=== PATIENT | male | born 1945 | race Caucasian/White ===

== ENCOUNTER 2017-07-10 12:50 | Emergency (ER) | payer OTHER ==
[~2017-07-10] VITALS: Ht 185.4 cm; Wt 131.5 kg
--- NOTE | 2017-07-10 13:08 | NUR ---
PT IS IN ROOM #1B. DR MARTINO EVALUATED THE PT.
[2017-07-10] MEDS ORDERED: HYDR-4077 PO (13:39)
[2017-07-10] MEDS ORDERED: AMLO5TAB2 PO (13:39)
[2017-07-10] MEDS ORDERED: MULT1TAB73 PO (13:39)
[2017-07-10] MEDS ORDERED: BISA-79 PO (13:39)
[2017-07-10] MEDS ORDERED: SENN-167 PO (13:39)
[2017-07-10] MEDS ORDERED: EPOE1VIA12 IJ (13:39)
[2017-07-10] MEDS ORDERED: FOLI0.8T22 PO (13:39)
[2017-07-10] MEDS ORDERED: WARF2.5T47 PO (13:39)
[2017-07-10] MEDS ORDERED: OMEP20TA5 PO (13:39)
[2017-07-10] MEDS ORDERED: METO25TA6 PO (13:39)
[2017-07-10] MEDS ORDERED: GABA300C PO (13:39)
[2017-07-10] MEDS ORDERED: POLY17PO4 PO (13:39)
[2017-07-10] MEDS ORDERED: CHOL200074 PO (13:39)
[2017-07-10 13:40] LABS: BASOPHILS # (AUTO) 0.1 K/uL (0.0-8.0); BASOPHILS % (AUTO) 0.7 % (0.0-2.0); EOSINOPHILS # (AUTO) 0.6 K/uL (0.0-0.7); EOSINOPHILS % (AUTO) 5.4 % (0.0-7.0); HEMATOCRIT 31.3 % (36.7-47.1); HEMOGLOBIN 10.1 g/dL (12.5-16.3); LYMPHOCYTES # (AUTO) 0.6 K/uL (20.0-40.0); LYMPHOCYTES % (AUTO) 5.5 % (20.5-51.5); MEAN CORPUSCULAR HEMOGLOBIN 26.2 uug (23.8-33.4); MEAN CORPUSCULAR HGB CONC 32 g/dL (32.5-36.3); MEAN CORPUSCULAR VOLUME 81.4 fL (73.0-96.2); MONOCYTES # (AUTO) 1.1 K/uL (2.0-10.0); MONOCYTES % (AUTO) 9.4 % (0.0-11.0); NEUTROPHILS # (AUTO) 8.8 K/uL (1.8-8.9); PLATELET COUNT (AUTO) 201 K/uL (152-348); RED BLOOD CELL COUNT(AUTO) 3.84 MIL/uL (4.06-5.63); WHITE BLOOD COUNT (AUTO) 11.1 K/uL (3.6-10.2)
[2017-07-10] MEDS ORDERED: HUMALOG SQ (13:40)
[2017-07-10] MEDS ORDERED: NPH,100V2 SQ ×2 (13:40)
[2017-07-10] MEDS ORDERED: FURO80TA87 PO (13:40)
[2017-07-10 13:56] LABS: CARBON DIOXIDE 29 mmol/L (21-32); CHLORIDE 100 mmol/L (98-107); CREATININE 2.4 mg/dL (0.6-1.3); POTASSIUM 4.1 mmol/L (3.5-5.1); UREA NITROGEN, BLOOD 65 mg/dL (7-18)
[2017-07-10 13:58] LABS: GLUCOSE 380 mg/dL (74-106)
[2017-07-10 14:08] LABS: ALANINE AMINOTRANSFERASE 33 U/L (16-63); ALKALINE PHOSPHATASE 304 U/L (50-136); ASPARTATE AMINOTRANSFERASE 29 U/L (15-37); BILIRUBIN,TOTAL 0.6 mg/dL (0.2-1.0); CREATINE KINASE, TOTAL 91 U/L (39-308); TOTAL PROTEIN, SERUM 6.3 g/dL (6.4-8.2)
[2017-07-10 14:16] LABS: *BILIRUBIN,URIN NEGATIVE (NEGATIVE); *BLOOD, URINE NEGATIVE (NEGATIVE); *CLARITY,URINE CLEAR (CLEAR); *COLOR,URINE YELLOW (YELLOW); *KETONES,URINE NEGATIVE (NEGATIVE); *PROTEIN,URINE 2+ (NEGATIVE); *UROBILINOGEN,URINE 0.2 E.U./dl (NORMAL); LEUKOCYTE ESTERASE ,URINE NEGATIVE (NEGATIVE); NITRITE, URINE NEGATIVE (NEGATIVE)
[2017-07-10] MEDS: ALBUTEROL SULFATE 2.5 MG/ 0.5 ML NEBU NEB ONE (14:28)
[2017-07-10] MEDS: IPRATROPIUM BROMIDE 0.5 MG/2.5 ML NEBU NEB ONE (14:28)
[2017-07-10] MEDS ORDERED: methylPREDNISolone SOD SUCC 125 MG/2 ML VIAL ONE (14:29)
[2017-07-10 14:30] LABS: UGLUCOSE 1+ (NEGATIVE)
[2017-07-10] MEDS ORDERED: FUROSEMIDE 40 MG/4 ML VIAL ONE (14:30)
[2017-07-10] MEDS ORDERED: NITROGLYCERIN OINT 1 GM PACKET TP ONE (14:30)
[2017-07-10] MEDS: NITROGLYCERIN OINT 1 GM PACKET TP ONE (14:31)
[2017-07-10] MEDS: FUROSEMIDE 20 MG/2 ML VIAL IV ONE (14:31)
[2017-07-10] MEDS: methylPREDNISolone SOD SUCC 125 MG/2 ML VIAL IV ONE (14:32)
[2017-07-10] MEDS: CEFTRIAXONE 1 G in IV DEXTROSE 5% 50 ML IV ONE (14:32)
[2017-07-10 14:33] LABS: MUCUS,URINE FEW /LPF (0-FEW); SQUAMOUS EPITHELIAL CELL,UR FEW /HPF (NONE SEEN); WBC,URINE 0-3 /HPF (0-3)
[2017-07-10] MEDS: INSULIN REGULAR, HUMAN 1,000 UNITS/10 ML VIAL SUBCUT ONE (14:34)
[2017-07-10] MEDS ORDERED: IPRATROPIUM BROMIDE 0.5 MG/2.5 ML NEBU ONE (14:37)
[2017-07-10] MEDS ORDERED: ALBUTEROL SULFATE 2.5 MG/ 0.5 ML NEBU ONE (14:37)
[2017-07-10] MEDS ORDERED: CEFTRIAXONE 1 G VIAL ONE (14:52)
[2017-07-10] MEDS ORDERED: INSULIN REGULAR, HUMAN 300 UNIT/3 ML VIAL ONE (14:53)
[2017-07-10 15:56] LABS: ABG BASE EXCESS 1.4 mmol/L; ABG HCO3 25.3 mmol/L; ABG PCO2 37.3 mmHg (35.0-45.0); ABG PH 7.449 (7.350-7.450); ABG PO2 73.7 mmHg (75.0-100.0); ABG SITE RIGHT BRACHIAL; ABG TOTAL HEMOGLOBIN 11.3 G/dL (13.5-18.0); COHb 0.9 % (0.5-1.5); MetHb 0.2 % (0.0-1.5); O2Hb 94.1 % (94.0-97.0); VENT MODE Nasal Cannula
--- NOTE | 2017-07-10 16:20 | NUR ---
[facility] WAS CALLED. PT'S INFORMATION GIVEN. WAITING FOR [facility] YOU[facility] TO CALL BACK TO CONTACT TO DR MARTINO. PT IS RESTING IN BED COMFORTABLY. NO S/S OF ACUTE DISTRESS AT THIS TIME.
--- NOTE | 2017-07-10 16:28 | NUR ---
DR MARTINO DISCUSSED PT'S TRANSFER TO [facility] WITH DR YUAN. WAITING FOR CALL WITH TRANSFER INFORMATION.
[2017-07-10] MEDS ORDERED: hydrALAZINE HCL 25 MG TABLET ONE (16:33)
[2017-07-10 18:13] VITALS: BP 182/95
[2017-07-10] MEDS: hydrALAZINE HCL 25 MG TABLET PO ONE (18:13)
--- NOTE | 2017-07-10 18:14 | NUR ---
[facility] STRATEGIC [facility]NERSH[facility] SPECIALIST JEET CALLED WITH TRANSFER INFORMATION. PT IS GOING TO BE TRANSFERED TO [facility] VIA [facility]. ADMITTING MD IS DR GRAF. PT IS GOING TO ROOM #5097. PHONE NUMBER TO GIVE REPORT IS # [phone].
--- NOTE | 2017-07-10 18:20 | NUR ---
[facility] FOR [facility] TO PIC PT UP IS 1 HOUR 30 MINUTES.
--- NOTE | 2017-07-10 19:04 | NUR ---
REPORT GIVEN TO [employer] [employer]OD SELECTOR RN. PT IS RESTING IN BED COMFORTABLY. NO S/S OF ACUTE DISTRESS.
--- NOTE | 2017-07-10 19:20 | NUR ---
REPORT GIVEN TO [facility] DEBORAH CORDERO.
--- NOTE | 2017-07-10 19:51 | NUR ---
PATIENT IN BED, NO ACUTE DISTRESS NOTED. NO SOB NOTED AT THIS TIME. PATIENT AWAITING [facility].
--- NOTE | 2017-07-10 21:19 | NUR ---
Patient Tranfers to outside Facility Physician:Dr Ames Location:[facility] RN Sameer aware of patient , report given. Patient transported by [facility]. Report given to Bean Viner, Elsa Resendiz. All belongings taken with patient. Peripheral IV remains intact per accepting facility request. 2 RN skin check complete per protocol. VSS at time of transfer. No complaint of pain. Patients is aware of patient transfer.
== END 2017-07-10 21:22 | disposition short-term general hospital (02) ==
LOC: ER 12:54
DX: I11.0 Hypertensive heart disease with heart failure (principal); I50.9 Heart failure, unspecified; E11.621 Type 2 diabetes mellitus with foot ulcer; E11.65 Type 2 diabetes mellitus with hyperglycemia; I70.0 Atherosclerosis of aorta; L97.529 Non-pressure chronic ulcer of other part of left foot with unspecified severity; Z79.4 Long term (current) use of insulin; Z79.01 Long term (current) use of anticoagulants; Z88.0 Allergy status to penicillin
CPT/HCPCS: 36415; 36600; 51702; 71010; 80053; 81001; 82550; 82962 ×2; 83605; 83880; 84484; 85025; 85610; 93005; 94640; 96365; 96372; 96375; 99285; A4663; J0696; J1815; J1940; J2930; J3490; J3590; 70030-TC

== ENCOUNTER 2017-09-23 06:51 | Emergency (ER) | payer OTHER ==
[~2017-09-23] VITALS: Ht 182.9 cm; Wt 128.8 kg
[~2017-09-23 06:51] MED LIST: AMLO5TAB2 PO; BISA-79 PO; CHOL200074 PO; EPOE1VIA12 IJ; FOLI0.8T22 PO; FURO80TA87 PO; GABA300C PO; HUMALOG SQ; HYDR-4077 PO; METO25TA6 PO; MULT1TAB73 PO; NPH,100V2 SQ; OMEP20TA5 PO; POLY17PO4 PO; SENN-167 PO; WARF2.5T47 PO
[2017-09-23] MEDS: ALBUTEROL SULFATE 2.5 MG/3 ML NEBU NEB ONE (07:03)
[2017-09-23] MEDS: IPRATROPIUM BROMIDE 0.5 MG/2.5 ML NEBU NEB ONE (07:03)
--- NOTE | 2017-09-23 07:03 | NUR ---
Unable to reconcile pt's home medications at this time, pt is sob and unable to recall all of his meds.
[2017-09-23 07:15] LABS: BASOPHILS # (AUTO) 0.1 K/uL (0.0-8.0); BASOPHILS % (AUTO) 0.5 % (0.0-2.0); EOSINOPHILS # (AUTO) 0.3 K/uL (0.0-0.7); EOSINOPHILS % (AUTO) 2.1 % (0.0-7.0); HEMATOCRIT 36.2 % (36.7-47.1); HEMOGLOBIN 11.8 g/dL (12.5-16.3); LYMPHOCYTES # (AUTO) 0.6 K/uL (20.0-40.0); LYMPHOCYTES % (AUTO) 4.5 % (20.5-51.5); MEAN CORPUSCULAR HEMOGLOBIN 25.5 uug (23.8-33.4); MEAN CORPUSCULAR HGB CONC 33 g/dL (32.5-36.3); MEAN CORPUSCULAR VOLUME 78.3 fL (73.0-96.2); NEUTROPHILS # (AUTO) 10.3 K/uL (1.8-8.9); NEUTROPHILS % (AUTO) 84.9 % (38.5-71.5); PLATELET COUNT (AUTO) 230 K/uL (152-348); RED BLOOD CELL COUNT(AUTO) 4.63 MIL/uL (4.06-5.63); WHITE BLOOD COUNT (AUTO) 12.2 K/uL (3.6-10.2)
[2017-09-23] MEDS ORDERED: ALBUTEROL SULFATE 2.5 MG/ 0.5 ML NEBU ONE (07:15)
[2017-09-23] MEDS ORDERED: IPRATROPIUM BROMIDE 0.5 MG/2.5 ML NEBU ONE (07:15)
[2017-09-23] MEDS: IV NORMAL SALINE 500 ML BAG IV ONE (07:15)
[2017-09-23] MEDS: FUROSEMIDE 20 MG/2 ML VIAL IVP ONE (07:15)
--- NOTE | 2017-09-23 07:16 | NUR ---
Report given to DEBORAH Brunner. I relinquish care of pt at this time.
[2017-09-23] MEDS ORDERED: NITROGLYCERIN OINT 1 GM PACKET TP ONE (07:27)
[2017-09-23] MEDS ORDERED: FUROSEMIDE 40 MG/4 ML VIAL ONE (07:27)
[2017-09-23 07:28] LABS: CARBON DIOXIDE 27 mmol/L (21-32); CHLORIDE 101 mmol/L (98-107); CREATININE 2.5 mg/dL (0.6-1.3); GLUCOSE 185 mg/dL (74-106); POTASSIUM 3.8 mmol/L (3.5-5.1); UREA NITROGEN, BLOOD 64 mg/dL (7-18)
[2017-09-23] MEDS: NITROGLYCERIN OINT 1 GM PACKET TP ONE (07:35)
--- NOTE | 2017-09-23 07:39 | NUR ---
PATIENT IS AWAKE ,ALERT, ORIENTED X4. STATES HE CANNOT BREATHE WELL, DR LIAO AWARE. MEDICATIONS GIVEN ORDERED. HE IS SITTING UP ON THE GURNEY, HE IS ON OXYGEN AND CONTINUOUS CARDIAC MONITORING.
[2017-09-23 07:41] LABS: ALANINE AMINOTRANSFERASE 33 U/L (16-63); ALKALINE PHOSPHATASE 352 U/L (50-136); ASPARTATE AMINOTRANSFERASE 24 U/L (15-37); BILIRUBIN,DIRECT 0.4 mg/dL (0.0-0.2); BILIRUBIN,TOTAL 1.1 mg/dL (0.2-1.0); TOTAL PROTEIN, SERUM 7.4 g/dL (6.4-8.2)
[2017-09-23] MEDS: MORPHINE SULFATE 2 MG/1 ML DISP.SYRIN IV ONE (07:55)
[2017-09-23] MEDS ORDERED: MORPHINE SULFATE 4 MG/1 ML DISP.SYRIN ONE (08:14)
--- NOTE | 2017-09-23 09:00 | NUR ---
PATIENT IS AWAKE AND ALERT. HE IS URINATING A LOT IN A URINAL. HE IS AWARE OF TRANSFER TO [facility]. REPORT GIVEN TO KATIUSKA IN [facility] AT [phone]. I ALSO CALLED HIS GABO (PER PATEINT REQUEST) AND INFORMED HER OF SITUATION AND TRANSFER TO .
--- NOTE | 2017-09-23 09:44 | NUR ---
AMBULANCE HERE TO TRANSFER PATIENT TO [place]. AL PAPERWORK AND RADIOLOGIY FILMS SENT. PATIENT IS AWAKE AND ALERT AND WAS ABLE TO WALK ONTO THE OTHER GURNEY.
--- NOTE | 2017-09-23 09:45 | NUR ---
[facility] TRANSPORT PATIENT
== END 2017-09-23 09:47 | disposition short-term general hospital (02) ==
LOC: ER 06:53
DX: J90 Pleural effusion, not elsewhere classified (principal); I50.9 Heart failure, unspecified; I25.10 Atherosclerotic heart disease of native coronary artery without angina pectoris; E11.9 Type 2 diabetes mellitus without complications; I10 Essential (primary) hypertension; Z79.4 Long term (current) use of insulin; Z79.01 Long term (current) use of anticoagulants; Z88.0 Allergy status to penicillin; Z95.1 Presence of aortocoronary bypass graft
CPT/HCPCS: 36415; 70030-TC; 71045; 85025; 85730; 93005; A4663; J1940; J2270; J3590; J7040

== ENCOUNTER 2017-12-07 17:27 | Emergency (ER) | payer OTHER ==
[~2017-12-07] VITALS: Ht 182.9 cm; Wt 128.8 kg
--- NOTE | 2017-12-07 17:35 | NUR ---
PT IS IN ROOM #1A. DR HOUGH EVALUATED THE PT.
[2017-12-07] MEDS ORDERED: ONDANSETRON 4 MG/2 ML VIAL ONE (17:40)
[2017-12-07] MEDS ORDERED: ACETAMINOPHEN 650 MG SUPP.RECT RC ONE ×2 (17:41→17:45)
[2017-12-07] MEDS ORDERED: ACETAMINOPHEN 325 MG SUPP ONE (17:42)
[2017-12-07] MEDS ORDERED: IV NORMAL SALINE 1000 ML BAG IV ONE (17:45)
[2017-12-07] MEDS ORDERED: ACETAMINOPHEN 325 MG SUPP RC ONE (17:45)
[2017-12-07] MEDS ORDERED: ONDANSETRON 4 MG/2 ML VIAL IV ONE (17:45)
--- NOTE | 2017-12-07 17:50 | NUR ---
[facility] WAS CALLED BY DR HOUGH. CODE SEPSIS PROTOCOL STARTED.
[2017-12-07] MEDS ORDERED: VANCOMYCIN IV 1,000 MG in IV DEXTROSE 5% 250 ML IV ONE (18:00)
[2017-12-07] MEDS ORDERED: FUROSEMIDE 20 MG/2 ML VIAL IV ONE (18:00)
[2017-12-07] MEDS ORDERED: LABETALOL HCL 100 MG/20 ML VIAL IV ONE (18:00)
[2017-12-07] MEDS ORDERED: LEVOFLOXACIN 500 MG/D5W 100ML PIGGYBACK IV ONE (18:00)
[2017-12-07] MEDS ORDERED: FUROSEMIDE 40 MG/4 ML VIAL ONE (18:11)
[2017-12-07] MEDS ORDERED: LABETALOL HCL 100 MG/20 ML VIAL ONE (18:11)
[2017-12-07] MEDS ORDERED: LEVOFLOXACIN 500 MG/D5W 100 ML ONE (18:12)
[2017-12-07 18:14] LABS: BASOPHILS % (AUTO) 0.3 % (0.0-2.0); EOSINOPHILS # (AUTO) 0.1 K/uL (0.0-0.7); EOSINOPHILS % (AUTO) 0.4 % (0.0-7.0); HEMATOCRIT 35.7 % (36.7-47.1); HEMOGLOBIN 11.7 g/dL (12.5-16.3); LYMPHOCYTES # (AUTO) 0.4 K/uL (20.0-40.0); LYMPHOCYTES % (AUTO) 3.2 % (20.5-51.5); MEAN CORPUSCULAR HEMOGLOBIN 26.7 uug (23.8-33.4); MEAN CORPUSCULAR HGB CONC 33 g/dL (32.5-36.3); MEAN CORPUSCULAR VOLUME 81.1 fL (73.0-96.2); MONOCYTES # (AUTO) 0.9 K/uL (2.0-10.0); MONOCYTES % (AUTO) 6.3 % (0.0-11.0); NEUTROPHILS # (AUTO) 12.5 K/uL (1.8-8.9); NEUTROPHILS % (AUTO) 89.8 % (38.5-71.5); PLATELET COUNT (AUTO) 187 K/uL (152-348); WHITE BLOOD COUNT (AUTO) 13.9 K/uL (3.6-10.2)
[2017-12-07 18:24] LABS: *BILIRUBIN,URIN NEGATIVE (NEGATIVE); *BLOOD, URINE Trace-lysed (NEGATIVE); *CLARITY,URINE SLIGHTLY CLOUDY (CLEAR); *COLOR,URINE YELLOW (YELLOW); *KETONES,URINE NEGATIVE (NEGATIVE); *UROBILINOGEN,URINE 0.2 E.U./dl (NORMAL); NITRITE, URINE NEGATIVE (NEGATIVE); PH,URINE 5.5 (5.0-8.0)
[2017-12-07 18:25] LABS: LEUKOCYTE ESTERASE ,URINE NEGATIVE (NEGATIVE)
[2017-12-07 18:26] LABS: ALANINE AMINOTRANSFERASE 53 U/L (16-63); ALKALINE PHOSPHATASE 519 U/L (50-136); ASPARTATE AMINOTRANSFERASE 23 U/L (15-37); BILIRUBIN,DIRECT 0.4 mg/dL (0.0-0.2); BILIRUBIN,TOTAL 1.1 mg/dL (0.2-1.0); CARBON DIOXIDE 23 mmol/L (21-32); CHLORIDE 99 mmol/L (98-107); CREATININE 2.7 mg/dL (0.6-1.3); POTASSIUM 4.2 mmol/L (3.5-5.1); TOTAL PROTEIN, SERUM 7.5 g/dL (6.4-8.2); UREA NITROGEN, BLOOD 74 mg/dL (7-18)
[2017-12-07 18:33] LABS: GLUCOSE 334 mg/dL (74-106)
[2017-12-07 18:39] LABS: *PROTEIN,URINE 3+ (NEGATIVE); UGLUCOSE 1+ (NEGATIVE)
--- NOTE | 2017-12-07 19:10 | NUR ---
REPORT GIVEN TO QUALITY ASSURANCE ASSISTANTMETAL CABINET FINISHER.
[2017-12-07 19:14] LABS: BACTERIA,URINE NONE SEEN /HPF (NONE SEEN); RBC,URINE 0-3 /HPF (0-3); SQUAMOUS EPITHELIAL CELL,UR NONE SEEN /HPF (NONE SEEN); WBC,URINE 0-3 /HPF (0-3)
--- NOTE | 2017-12-07 19:35 | NUR ---
FLUIDS CHALLENGE NOT GIVEN WITH SEPSIS PROTOCOL DUE TO HX OF CHF. AWARE.
--- NOTE | 2017-12-07 19:35 | NUR ---
CALL RECEIVED FROM [facility]. KP MD WILL BE CALL BACK TO DISCUSS POSSIBLE [facility] TRANSPORT.
[2017-12-07] MEDS ORDERED: VANCOMYCIN IV 200 ML ONE (19:53)
[2017-12-07] MEDS ORDERED: NITROGLYCERIN 0.4 MG/TAB BOTTLE SL ONE ×2 (20:00→20:24)
[2017-12-07] MEDS ORDERED: NITROGLYCERIN OINT 1 GM PACKET TP ONE ×2 (20:00→20:23)
[2017-12-07 20:32] VITALS: BP 154/73
--- NOTE | 2017-12-07 20:33 | NUR ---
PT IN BED. PT'S SPOUSE, GABO, AT BEDSIDE. PT IS A&OX4. NO SIGNS/SYMPTOMS OF DISTRESS WITNESSED BY NURSE OR EXPRESSED BY PT AT THIS TIME.
--- NOTE | 2017-12-07 20:36 | NUR ---
RECEIVED TRANPORT INFO FROM [facility]. ACCEPTING DR IS MD FIGUEROA. ROOM 4060. ALS TRANSPORT. PHONE NUMBER TO GIVE REPORT ETA [phone]
--- NOTE | 2017-12-07 21:40 | NUR ---
PT TRANSFERED TO [facility]IA [id number] UNDER THE CARE OF EMT SANA.
== END 2017-12-07 21:40 | disposition short-term general hospital (02) ==
LOC: ER 17:27
DX: I11.0 Hypertensive heart disease with heart failure (principal); I50.9 Heart failure, unspecified; R50.9 Fever, unspecified; L03.116 Cellulitis of left lower limb; I25.10 Atherosclerotic heart disease of native coronary artery without angina pectoris; E11.9 Type 2 diabetes mellitus without complications; Z95.1 Presence of aortocoronary bypass graft; Z86.73 Personal history of transient ischemic attack (TIA), and cerebral infarction without residual deficits; Z88.0 Allergy status to penicillin; Z88.8 Allergy status to other drugs, medicaments and biological substances; Z79.4 Long term (current) use of insulin; Z79.01 Long term (current) use of anticoagulants; Z79.899 Other long term (current) drug therapy
CPT/HCPCS: 36415; 70030-TC; 70450; 71045; 72125; 73630; 83605; 84443; 85025; 85730; 87040; 87077; 87086; 93005; A4663; J1940; J1956; J2405; J3370; J3490; J7030